=== PATIENT | male | born 1985 | race American Indian/Alaskan Native ===

== ENCOUNTER 2016-11-15 21:41 | Emergency (ER) | payer SELFPAY ==
[2016-11-15] MEDS ORDERED: BOOSTRIX IM ONE (22:03)
[2016-11-15] MEDS ORDERED: MORPHINE IV ONE (22:03)
[2016-11-15] MEDS ORDERED: ZOFRAN IV ONE (22:03)
[2016-11-15] MEDS ORDERED: TRIPLE ANTIBIOTIC TP ONE (22:04)
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
[2016-11-15] MEDS ORDERED: NACL 0.9% IR ONE (22:56)
[2016-11-15] MEDS ORDERED: XYLOCAINE 1%/ EPI 1:100,000 INFILTRATI ONE (22:56)
[2016-11-15] MEDS ORDERED: MARCAINE 0.5% INFILTRATI ONE (22:56)
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
[2016-11-16 00:31] VITALS: BP 102/65
== END 2016-11-16 00:17 | disposition home or self-care (01) ==
LOC: ED 21:41
DX: S81.011A Laceration without foreign body, right knee, initial encounter (principal); S09.90XA Unspecified injury of head, initial encounter; F17.200 Nicotine dependence, unspecified, uncomplicated; V29.49XA Motorcycle driver injured in collision with other motor vehicles in traffic accident, initial encounter; Y93.9 Activity, unspecified; Y99.9 Unspecified external cause status; Y92.410 Unspecified street and highway as the place of occurrence of the external cause
CPT/HCPCS: 12005; 70450; 72125; 73562; 90471; 90715; 96374; 96375; 99284; J2270; J2405; A6250

== ENCOUNTER 2016-12-12 22:56 | Inpatient (IN) | payer OTHER ==
[2016-12-12] MEDS ORDERED: SUBLIMAZE IV ONE (23:01)
[2016-12-12] MEDS ORDERED: NACL 0.9% 1000 ML 1,000 ML IV ONE (23:03)
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
[2016-12-12] MEDS ORDERED: NACL 0.9% 1000 ML 1,000 ML ONE (23:07)
[2016-12-12] MEDS ORDERED: SUBLIMAZE ONE (23:07)
[2016-12-12 23:16] LABS: Basophils % (Auto) 0.2 % (0.0-1.8); Eosinophils % (Auto) 0.7 % (0.0-4.3); Hematocrit 46.7 % (35.5-45.6); Hemoglobin 15.7 gm/dl (11.8-15.2); Mean Corpuscular HGB Conc 34 % (32-34); Mean Corpuscular Hemoglobin 30 pg (28-32); Mean Corpuscular Volume 88 fl (84-94); Platelet Count 250 K/mm3 (140-440); Red Blood Count 5.31 M/mm3 (3.65-5.03); Red Cell Distribution Width 13.2 % (13.2-15.2); White Blood Count 14.3 K/mm3 (4.5-11.0)
[2016-12-12 23:24] LABS: INR 0.9 (0.87-1.13)
[2016-12-12 23:25] LABS: Partial Thromboplastin Time 25.9 Sec. (24.2-36.6)
[2016-12-12 23:29] LABS: Alanine Aminotransferase 29 units/L (7-56); Albumin/Globulin Ratio 1.5 %; Alkaline Phosphatase 72 units/L (35-129); Anion Gap 22 mmol/L; BUN/Creatinine Ratio 11; Blood Urea Nitrogen 12 mg/dL (9-20); Calcium 9.9 mg/dL (8.4-10.2); Carbon Dioxide 26 mmol/L (22-30); Chloride 98.1 mmol/L (98-107); Glucose 138 mg/dL (75-100); Potassium 3.7 mmol/L (3.6-5.0); Sodium 142 mmol/L (137-145); Total Protein 8.4 g/dL (6.3-8.2)
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
[2016-12-13] MEDS ORDERED: DILAUDID ONE (01:07)
[2016-12-13 01:21] LABS: Urine Drugs of Abuse Note Disclamer
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
[2016-12-13] MEDS ORDERED: DILAUDID IV ONE (03:22)
[2016-12-13] MEDS ORDERED: DULCOLAX PR PRN (05:04)
[2016-12-13] MEDS ORDERED: MILK OF MAGNESIA PO PRN (05:04)
[2016-12-13] MEDS ORDERED: TYLENOL PO PRN (05:04)
[2016-12-13] MEDS ORDERED: ZOFRAN IV PRN (05:04)
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
--- NOTE | 2016-12-13 10:04 | XRay Report ---
AP CHEST: HISTORY: chest pain AP view of the chest demonstrates a normal mediastinal and cardiac contour with clear lungs and normal bony and soft tissue structures. IMPRESSION: Unremarkable AP chest.
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
[2016-12-13] MEDS: MORPHINE IV PRN ×3 (12:27→22:44)
[2016-12-13] MEDS: LOVENOX SUB-Q SCH (12:27)
[2016-12-13] MEDS ORDERED: ATIVAN IV PRN (14:18)
[2016-12-13 16:09] LABS: Alanine Aminotransferase 28 units/L (7-56); Albumin 4.2 g/dL (3.9-5); Albumin/Globulin Ratio 1.4 %; Alkaline Phosphatase 56 units/L (35-129); Total Protein 7.2 g/dL (6.3-8.2)
[2016-12-13] MEDS: THERAGRAN Tab PO SCH (16:19)
[2016-12-13] MEDS: VITAMIN B-1 PO SCH (16:19)
[2016-12-13 16:28] LABS: Bilirubin,Direct < 0.2 mg/dL (0-0.2); Bilirubin,Indirect 0.6 mg/dL
--- NOTE | 2016-12-13 16:34 | Event Note ---
Date: 12/13/16 patient seen and examined, in no acute distress. multiple skin brusing, will obtain wound care eval. Plan for surgery in Am. start on CIWA and add folic acid , MVI and Thiamine.
[2016-12-13] MEDS: FOLVITE PO SCH (18:10)
[2016-12-13] MEDS: NACL 0.9% 1000 ML 1,000 ML IV SCH (18:19)
[2016-12-14 04:28] LABS: Basophils % (Auto) 0.2 % (0.0-1.8); Eosinophils % (Auto) 0.2 % (0.0-4.3); Hematocrit 37.5 % (35.5-45.6); Mean Corpuscular HGB Conc 35 % (32-34); Mean Corpuscular Hemoglobin 30 pg (28-32); Mean Corpuscular Volume 87 fl (84-94); Platelet Count 155 K/mm3 (140-440); Red Blood Count 4.33 M/mm3 (3.65-5.03); Red Cell Distribution Width 12.9 % (13.2-15.2); White Blood Count 12.2 K/mm3 (4.5-11.0)
[2016-12-14] MEDS: NACL 0.9% 1000 ML 1,000 ML IV SCH ×2 (04:41→16:34)
[2016-12-14 04:50] LABS: BUN/Creatinine Ratio 13; Blood Urea Nitrogen 10 mg/dL (9-20); Calcium 8.6 mg/dL (8.4-10.2); Carbon Dioxide 26 mmol/L (22-30); Glucose 117 mg/dL (75-100)
[2016-12-14 04:51] LABS: Anion Gap 15 mmol/L; Chloride 104.5 mmol/L (98-107); Potassium 4.3 mmol/L (3.6-5.0); Sodium 141 mmol/L (137-145)
[2016-12-14] MEDS: FOLVITE PO SCH (10:00)
[2016-12-14] MEDS: THERAGRAN Tab PO SCH (10:00)
[2016-12-14] MEDS: VITAMIN B-1 PO SCH (10:00)
[2016-12-14] MEDS ORDERED: DILAUDID ONE ×2 (10:08→15:07)
[2016-12-14] MEDS ORDERED: DIPRIVAN 10 MG/ML IV ONE (10:08)
[2016-12-14] MEDS ORDERED: XYLOCAINE MPF 2% ONE (10:08)
--- NOTE | 2016-12-14 10:27 | Anesthesia Consultation ---
Anesthesia Consult and Med Hx - Airway Anesthetic Teeth Evaluation: Good ROM Head & Neck: Adequate Mental/Hyoid Distance: Adequate Mallampati Class: Class II Intubation Access Assessment: Probably Good - Pulmonary Exam CTA: Yes - Cardiac Exam Cardiac Exam: RRR - Pre-Operative Health Status ASA Pre-Surgery Classification: ASA2 Proposed Anesthetic Plan: General - Pulmonary Hx Smoking: Yes Hx Asthma: No COPD: No Hx Pneumonia: No - Endocrine Hx End Stage Renal Disease: No
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
--- NOTE | 2016-12-14 10:29 | Anesthesia Day of Surgery ---
Anesthesia Day of Surgery - Day of Surgery Patient Examined: Yes Patient H&P Reviewed: Yes Patient is NPO: Yes
[2016-12-14] MEDS ORDERED: VERSED ONE (10:34)
[2016-12-14] MEDS ORDERED: PEPCID IV ONE (10:34)
[2016-12-14] MEDS ORDERED: ANCEF ONE (11:07)
[2016-12-14] MEDS ORDERED: ZOFRAN ONE (12:03)
[2016-12-14] MEDS ORDERED: SODIUM CHLORIDE FLUSH SYRINGE 10 ML IV NR (15:00)
[2016-12-14] MEDS: DILAUDID IV PRN ×2 (15:06→15:16)
[2016-12-14] MEDS ORDERED: ZOFRAN IV PRN (15:10)
[2016-12-14] MEDS ORDERED: DILAUDID IV PRN (15:10)
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
--- NOTE | 2016-12-14 15:50 | Post Anesthesia Evaluation ---
- Post Anesthesia Evaluation Patient Participated: Yes Airway Patent: Yes Stable Respiratory Function: Yes Nausea/Vomiting: No Temp > 96.8F: Yes Pain Manageable: Yes Adequeate Hydration: Yes Anesthesia Complications: No Block Receding Appropriately: Not Applicable Patient on Ventilator: No
[2016-12-14 16:04] LABS: Hemoglobin 12.9 gm/dl (11.8-15.2)
[2016-12-14] MEDS: LOVENOX SUB-Q SCH (18:30)
[2016-12-14] MEDS: ANCEF/NS 1 GM/50 ML 1 GM/50 ML BAG IV SCH (18:30)
[2016-12-14] MEDS: MORPHINE IV PRN (22:03)
[2016-12-15] MEDS: ANCEF/NS 1 GM/50 ML 1 GM/50 ML BAG IV SCH (01:06)
[2016-12-15] MEDS: MORPHINE IV PRN ×6 (03:12→20:10)
[2016-12-15] MEDS: NACL 0.9% 1000 ML 1,000 ML IV SCH ×2 (03:45→18:15)
[2016-12-15 04:00] LABS: Hematocrit 32.3 % (35.5-45.6); Hemoglobin 11.2 gm/dl (11.8-15.2); Mean Corpuscular HGB Conc 35 % (32-34); Mean Corpuscular Hemoglobin 30 pg (28-32); Mean Corpuscular Volume 87 fl (84-94); Platelet Count 135 K/mm3 (140-440); Red Blood Count 3.73 M/mm3 (3.65-5.03); Red Cell Distribution Width 13.3 % (13.2-15.2); White Blood Count 11.8 K/mm3 (4.5-11.0)
--- NOTE | 2016-12-15 07:24 | XRay Report ---
RIGHT FEMUR, 2 VIEWS RIGHT KNEE, 2 VIEWS History: Pain, right femoral fracture. Findings: AP and lateral views of the right femur and right knee demonstrate internal fixation of the comminuted right femoral shaft fracture with intramedullary dylan and screws. Alignment at the fracture site appears anatomic. Impression: Right femoral shaft fracture, internally fixated.
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
[2016-12-15] MEDS: FOLVITE PO SCH (11:52)
[2016-12-15] MEDS: THERAGRAN Tab PO SCH (11:52)
[2016-12-15] MEDS: VITAMIN B-1 PO SCH (11:52)
[2016-12-15] MEDS: LOVENOX SUB-Q SCH (11:53)
--- NOTE | 2016-12-15 19:03 | Progress Note ---
Assessment and Plan s/p IM nail right femur doing well continue physical therapy and observation Subjective Date of service: 12/15/16 Interval history: no c/o's noted except for tingling sensation right foot Objective Vital signs: Vital Signs - 12hr 12/15/16 12/15/16 12/15/16 08:36 09:15 10:00 Temperature 99.1 F Pulse Rate 86 Respiratory 18 Rate Blood Pressure 123/77 O2 Sat by Pulse 100 98 Oximetry 12/15/16 12/15/16 12/15/16 11:56 11:57 12:03 Temperature 98.6 F Pulse Rate 95 H 105 H Respiratory 18 Rate Blood Pressure 129/80 O2 Sat by Pulse 99 99 Oximetry 12/15/16 17:15 Temperature 99.3 F Pulse Rate 113 H Respiratory 18 Rate Blood Pressure 134/78 O2 Sat by Pulse 98 Oximetry Narrative Exam: post op dressing intact, compartments soft, distal n/v intact - Labs CBC & BMP: 12/15/16 03:21 12/14/16 04:09 Labs: Abnormal lab results 12/15/16 Range/Units 03:21 WBC 11.8 H (4.5-11.0) K/mm3 Hgb 11.2 L (11.8-15.2) gm/dl Hct 32.3 L (35.5-45.6) % MCHC 35 H (32-34) % Plt Count 135 L (140-440) K/mm3
[2016-12-15] MEDS: ATIVAN IV PRN (22:05)
[2016-12-16] MEDS: MORPHINE IV PRN ×6 (05:10→21:33)
[2016-12-16] MEDS: NACL 0.9% 1000 ML 1,000 ML IV SCH ×2 (05:14→15:45)
[2016-12-16 05:40] LABS: Hematocrit 31.7 % (35.5-45.6); Hemoglobin 10.8 gm/dl (11.8-15.2); Mean Corpuscular HGB Conc 34 % (32-34); Mean Corpuscular Hemoglobin 30 pg (28-32); Mean Corpuscular Volume 87 fl (84-94); Platelet Count 141 K/mm3 (140-440); Red Blood Count 3.64 M/mm3 (3.65-5.03); Red Cell Distribution Width 12.5 % (13.2-15.2); White Blood Count 12.4 K/mm3 (4.5-11.0)
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
[2016-12-16] MEDS: FOLVITE PO SCH (09:20)
[2016-12-16] MEDS: VITAMIN B-1 PO SCH (09:20)
[2016-12-16] MEDS: THERAGRAN Tab PO SCH (09:20)
[2016-12-16] MEDS: LOVENOX SUB-Q SCH (09:20)
--- NOTE | 2016-12-16 11:22 | XRay Report ---
Right femur 2 views: History: Postop views: Findings: There is internal fixation noted of mid right femur comminuted fracture with intramedullary dylan. There is satisfactory alignment of the major fracture fragments. Stable hardware.. Impression: Stable internal fixation fracture mid right femur.
[2016-12-16] MEDS: KEFLEX PO SCH ×2 (14:50→23:27)
--- NOTE | 2016-12-16 16:26 | Progress Note ---
Assessment and Plan s/p IM nail right femur doing well continue physical therapy and observation Subjective Date of service: 12/16/16 Interval history: no c/o's noted except for tingling sensation right foot Objective Vital signs: Vital Signs - 12hr 12/16/16 12/16/16 12/16/16 05:11 06:18 07:35 Temperature 99.4 F 100.1 F H Pulse Rate 105 H 105 H Respiratory 17 Rate Blood Pressure 133/93 Blood Pressure 133/93 [Right] O2 Sat by Pulse 97 97 Oximetry 12/16/16 12/16/16 12/16/16 07:36 12:50 12:53 Temperature 99.5 F Pulse Rate 120 H 103 H 105 H Respiratory 18 Rate Blood Pressure Blood Pressure 131/70 [Right] O2 Sat by Pulse 99 98 97 Oximetry - Labs CBC & BMP: 12/16/16 04:49 12/14/16 04:09 Labs: Abnormal lab results 12/16/16 12/16/16 Range/Units 04:49 11:13 WBC 12.4 H (4.5-11.0) K/mm3 RBC 3.64 L (3.65-5.03) M/mm3 Hgb 10.8 L (11.8-15.2) gm/dl Hct 31.7 L (35.5-45.6) % RDW 12.5 L (13.2-15.2) % C-Reactive Protein 23.30 H (0.00-1.30) mg/dL
[2016-12-16] MEDS: ATIVAN IV PRN (23:27)
[2016-12-17] MEDS: NACL 0.9% 1000 ML 1,000 ML IV SCH (01:20)
[2016-12-17 04:40] LABS: Bacteria,Urine 1+ /HPF (Negative); Bilirubin,Urine NEG (Negative); Blood,Urine NEG (Negative); Ketones,Urine NEG (Negative); Leukocyte Esterase,Urine NEG (Negative); Mucus,Urine FEW /HPF; Nitrite,Urine NEG (Negative); Protein,Urine <15 mg/dL mg/dL (Negative)
[2016-12-17] MEDS: MORPHINE IV PRN (04:42)
[2016-12-17 07:41] LABS: Hematocrit 29.3 % (35.5-45.6); Hemoglobin 10.1 gm/dl (11.8-15.2); Mean Corpuscular HGB Conc 34 % (32-34); Mean Corpuscular Hemoglobin 30 pg (28-32); Mean Corpuscular Volume 87 fl (84-94); Platelet Count 160 K/mm3 (140-440); Red Blood Count 3.37 M/mm3 (3.65-5.03); Red Cell Distribution Width 12.5 % (13.2-15.2); White Blood Count 10.7 K/mm3 (4.5-11.0)
[2016-12-17 07:57] LABS: Anion Gap 16 mmol/L; BUN/Creatinine Ratio 9; Blood Urea Nitrogen 7 mg/dL (9-20); Carbon Dioxide 25 mmol/L (22-30); Glucose 129 mg/dL (75-100); Potassium 3.5 mmol/L (3.6-5.0); Sodium 139 mmol/L (137-145)
[2016-12-17 08:22] VITALS: BP 124/76
--- NOTE | 2016-12-17 09:02 | Discharge Summary ---
Providers - Providers Date of Admission: 12/13/16 05:04 Date of discharge: 12/17/16 Attending physician: ЮЛИЯ KONG 12/14/16 14:53 Physical Therapy Evaluation and Treat [CONS] Routine Comment: Reason For Exam: post op evaluation Weight bearing status?: Full wt bearing Assistive devices?: Yes If so list: Crutches Primary care physician: STATOR WINDER Hospitalization Condition: Stable Hospital course: See dictated Discharge summary in reports Disposition: DC-01 TO HOME OR SELFCARE - Discharge Diagnoses (1) Femur fracture, right Status: Acute Qualifiers: Encounter type: subsequent encounter Femur location: shaft Fracture type : closed Open fracture type: O Fracture morphology: transverse Fracture alignment: displaced Salter-Howell Fracture Type: S Fracture healing: with routine healing Qualified Code(s): S72.321D - Displaced transverse fracture of shaft of right femur, subsequent encounter for closed fracture with routine healing Comment: S/p IM nail Femur doing well. Core Measure Documentation - Palliative Care Palliative Care/ Comfort Measures: Not Applicable - Core Measures Any of the following diagnoses?: none Exam - Constitutional Vitals: Temp Pulse Resp BP Pulse Ox 100.1 F H 108 H 18 124/76 98 12/17/16 07:30 12/17/16 07:28 12/17/16 07:28 12/17/16 07:30 12/17/16 07:28 General appearance: Present: no acute distress, well-nourished - EENT Eyes: Present: PERRL ENT: hearing intact, clear oral mucosa - Neck Neck: Present: supple, normal ROM - Respiratory Respiratory effort: normal Respiratory: bilateral: CTA - Cardiovascular Heart Sounds: Present: S1 & S2. Absent: rub, click - Extremities Extremities: pulses symmetrical, No edema Peripheral Pulses: within normal limits - Abdominal General gastrointestinal: Present: soft, non-tender, non-distended, normal bowel sounds Male genitourinary: Present: normal - Integumentary Integumentary: Present: clear, warm, dry - Musculoskeletal Musculoskeletal: gait normal, strength equal bilaterally - Psychiatric Psychiatric: appropriate mood/affect, intact judgment & insight - Neurologic Neurologic: CNII-XII intact, moves all extremities Plan Weight Bearing Status: Weight Bear as Tolerated Diet: regular Follow up with: DOMITILA SANCHEZ MD [Primary Care Provider] - 3-5 Days LOIDA WILLSON MD [Staff Physician] - 7 Days
== END 2016-12-17 12:13 | disposition home or self-care (01) | DRG 480 ==
LOC: ED 22:56 → 3A 12-13 05:04 → 3B-SURG 12-13 08:40
PROVIDERS: ADMIT Internal Medicine; ATTEND Internal Medicine
PROC: 0QSB36Z Reposition Right Lower Femur with Intramedullary Internal Fixation Device, Percutaneous Approach (ICD-10-PCS; principal; 2016-12-14)
DX: S72.351A Displaced comminuted fracture of shaft of right femur, initial encounter for closed fracture (principal); G93.41 Metabolic encephalopathy; M62.82 Rhabdomyolysis; F17.210 Nicotine dependence, cigarettes, uncomplicated; D72.829 Elevated white blood cell count, unspecified; Y93.01 Activity, walking, marching and hiking; F10.10 Alcohol abuse, uncomplicated; Z82.49 Family history of ischemic heart disease and other diseases of the circulatory system; V89.2XXA Person injured in unspecified motor-vehicle accident, traffic, initial encounter; Y92.480 Sidewalk as the place of occurrence of the external cause; Y99.8 Other external cause status
CPT/HCPCS: 36415; 70450; 71010; 71260; 72125; 72128; 72131; 74177; 80048; 80053; 80074; 80307; 80320; 81001; 82140; 82550; 85014; 85018; 85025; 85027; 85610; 85730; 86140; 86850; 86900; 86901; 87040; 96374; 96375; C1713; C1769; G0480; J0690; J1170; J1650; J2060; J2250; J2270; J2405; J2704; J3010; J7030; Q9967